=== PATIENT | female | born 1975 | race Two or more races ===

== ENCOUNTER 2018-11-22 17:21 | Emergency (ER) | payer BC ==
[~2018-11-22] VITALS: Ht 154.9 cm; Wt 69.4 kg
[2018-11-22 17:54] VITALS: BP 122/70
== END 2018-11-22 18:24 | disposition home or self-care (01) ==
LOC: ER 17:26
DX: S39.012A Strain of muscle, fascia and tendon of lower back, initial encounter (principal); Z98.890 Other specified postprocedural states; V49.59XA Passenger injured in collision with other motor vehicles in traffic accident, initial encounter; Y93.89 Activity, other specified; Y92.488 Other paved roadways as the place of occurrence of the external cause; Y99.8 Other external cause status